=== PATIENT | female | born 1960 | race Caucasian/White ===

== ENCOUNTER → 2021-05-05 | Outpatient (CLI) | payer MEDICARE | LOC: COL.VAS 14:18 | DX: I07.1 Rheumatic tricuspid insufficiency (principal) ==

== ENCOUNTER → 2021-05-05 | Outpatient (CLI) | payer MEDICARE ==
[2021-05-05 15:23] LABS: MEAN CELL VOLUME 71 fl (80.0-100.0); MEAN CORPUSCULAR HGB CONC 29 g/dl (33.0-37.0); MEAN PLATELET VOLUME 8.8 fl (7.4-10.4); PLATELET COUNT 320 K/mm3 (130-400); RED BLOOD COUNT 3.89 M/mm3 (4.10-5.30); REDCELL DISTRIBUTION WIDTH-CV 17.3 % (11.5-14.5)
[2021-05-05 15:32] LABS: HEMATOCRIT 27.5 % (37.0-47.0); HEMOGLOBIN 7.9 g/dl (12.5-16.0); MEAN CORPUSCULAR HEMOGLOBIN 20 pg (27-31)
[2021-05-05 15:34] LABS: ALBUMIN 3.4 gm/dL (3.4-4.8); BILIRUBIN,TOTAL 0.3 mg/dL (0.2-1.2); C-REACTIVE PROTEIN 8.92 mg/dL (0.00-0.50); CALCIUM 9.2 mg/dL (8.4-10.2); CREATININE, serum 0.78 mg/dL (0.57-1.11); POTASSIUM 4.6 mmol/L (3.5-4.5); TOTAL PROTEIN 7.3 gm/dL (6.2-8.1)
[2021-05-05 16:06] LABS: BASOPHIL 1 % (0-2); EOSINOPHIL 6 % (0-4); LYMPHOCYTE 18 % (20.0-51.0); NEUTROPHILS 66 % (42.0-75.2)
[2021-05-05 16:07] LABS: HYPOCHROMIA 3+; MICROCYTOSIS 1+
[2021-05-05 16:08] LABS: ANISOCYTOSIS 1+
[2021-05-05 16:12] LABS: OVALOCYTES 1+; POIKILOCYTOSIS 1+; STOMATOCYTE 1+
== END ==
LOC: COL.LAB 14:26
PROVIDERS: Internal Medicine Pulmonary Disease
DX: R06.02 Shortness of breath (principal)

== ENCOUNTER → 2021-08-17 | Outpatient (CLI) | payer MEDICARE | LOC: COL.PUL 12:51 | DX: R06.02 Shortness of breath (principal) | CPT/HCPCS: J7674 ==

== ENCOUNTER → 2023-05-09 | Outpatient (CLI) | payer MEDICARE | LOC: COL.RAD 13:43 | DX: K59.09 Other constipation (principal); M16.0 Bilateral primary osteoarthritis of hip; M47.9 Spondylosis, unspecified | CPT/HCPCS: 32172 ==

== ENCOUNTER → 2023-05-14 | Outpatient (REF) | payer MEDICARE | LOC: COL.RAD 12:00 | DX: K59.09 Other constipation (principal) ==